=== PATIENT | male | born 1940 | race Caucasian/White ===

== ENCOUNTER 2016-12-31 23:59 | Emergency (ER) | payer MEDICARE, BC ==
--- NOTE | ~2016-12-31 | CT2 ---
[facility] A Service of [facility] & [facility] RADIOLOGY TEXT RESULTS PATIENT: CHIQUITA ARAUJO LOCATION: [facility] : 36 UNIT #: [id number] AGE: [address]: Jann Simon MD SEX: M ORDER DR: [id number] [facility] [address] [place], [place] [address] [id number] E MR#: [id number] Acc #: [id number] NAME: CHIQUITA ARAUJO : 1940 SEX: M STUDY DATE/TIME: 01/01/2017 4:03 UNIT: [facility] ROOM: STUDY DESCRIPTION: CT Abd and Pelv W Cont Attending Physician: Jann Simon M.D. Ordering Physician: Jann Simon M.D. Primary Care Physician: Jose Freire M.D. MEDICAL IMAGING REPORT This report is preliminary unless electronic signature is present EXAM CT abdomen and pelvis with contrast INDICATION Abdominal pain and no bowel movement for 4 days. COMPARISON 12/19/2015. TECHNIQUE Patient was given 100 mL of Isovue 370 and axial 5 mm images were obtained through the abdomen and pelvis. This CT examination was performed with one or more of the following radiation dose reduction techniques: automatic exposure control, adjustment of mA and/or kV according to patient size, and iterative reconstruction. FINDINGS Lung bases are clear. The liver contains multiple low-density lesions. Most appear to be cysts. The 1 in the left lobe of the liver is a hemangioma. They were all present 01/04/2015. The hemangioma is about 3 cm in diameter. The gallbladder has been removed. The spleen is normal. The pancreas is normal. The adrenal glands are normal. The kidneys contain multiple cysts. The abdominal aorta shows very mild infrarenal enlargement measuring 2.5 cm in diameter. There is a cystic area in the left side of the abdomen below the level of the kidneys. It is well-circumscribed and unilocular. It is 4.3 x 2.7 x 4.6 cm. It measures -16 Hounsfield units. It was present 01/04/2015 and it is about the same size. It was also present in 2011 although it is much larger than on that exam. There continues to be an abdominal wall hernia containing small bowel without evidence of obstruction. The appearance is unchanged from the prior study. The bowel is normal. The bladder appears to have a left-sided mass measuring about 1 cm in diameter which is new from 2015. There are metal seeds in the prostate gland. The bones are unremarkable. [facility]. [facility] A Service of [facility] RADIOLOGY TEXT RESULTS PATIENT: CHIQUITA ARAUJO LOCATION: [facility] : 36 UNIT #: [id number] AGE: [address]: Jann Simon MD SEX: M ORDER DR: IMPRESSION 1. There appears to be a left bladder wall mass. This is along the inferior margin of the bladder and is new from 2015. It is about 11-13 mm in diameter. 2. There is an enlarging fluid density well-circumscribed lesion in the mesentery. It is larger than in 2011 but about the same size as 2015 and has a very benign appearance. 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 3. 2.5 cm infrarenal abdominal aortic aneurysm. 4. Hepatic cysts and left lobe hepatic hemangioma. 5. Midline abdominal wall weak area and probable hernia containing small bowel. It is unchanged from prior exam. There is no evidence of obstruction. Dictated by... Jassi Del Cid M.D. THIS IS AN ELECTRONICALLY VERIFIED REPORT Jassi Del Cid M.D. at 01/01/2017 1:15 PM NATHAN/benny TD: 01/01/2017 06:28 JOB #: [id number] MEDICAL IMAGING REPORT Page 1 of 1 COPY
[~2016-12-31 23:59] MED LIST: ACETAMINOPHEN PO; ACTOS PO; ACTOS30 MG PO; AMIODARONE PO; ATORVASTATIN CA10 MG PO; B-121000 MC1 PO; CARDIZEM30 MG PO; CARTIA XT PO; CERTAGEN PO; CO Q-10150 MG PO; CO Q10100 MG PO; COLACE PO; CORDARONE200 M1 PO; COUMADIN PO; COUMADIN5 MG PO; DILTIAZEM 24HR120 M1 PO; DILTIAZEM 24HR120 MG PO; FLAGYL PO; FLOMAX0.4 M1 PO; FLOMAX0.4 MG PO; GABAPENTIN300 MG PO; GABAPENTIN600 MG PO; GLUCOPHAGE500 M1 PO; GLUCOPHAGE500 MG PO; GLUCOTROL PO; GLYBURIDE MICRON3 MG PO; GLYBURIDE PO; GLYNASE PO; IRON325 ( 65 ) PO; JUICE PLUS PO; JUICE PLUS VITAMINS PO; KEFLEX PO; KEPPRA500 M1 PO; LANTUS SOLOSTAR3 ML SUBQ; LATANOPROST2.5 ML OP; LEVAQUIN750 MG PO; LIPITOR; LIPITOR PO; LOPRESSOR PO; LORTAB 7.51 TAB 7.5/ PO; METFORMIN HCL500 M1 PO; METFORMIN HCL500 M2 PO; METFORMIN PO; MORPHINE SULFAT15 MG PO; MORPHINE SULFAT30 M4 PO; NATURAL VITA400 UNI2 PO; NEURONTIN300 MG PO; NEURONTIN600 MG PO; PACERONE PO; PIOGLITAZONE15 MG PO; RED YEAST RICE600 M1 PO; STOOL SOFTENER100 M1 PO; THERAGRAN-M ADV1 TA1 PO; TOPROL XL 50 MG50 MG PO; VANTIN100 MG PO; VICOPROFEN 200-1 TAB PO; VIT B-12 PO; VIT E PO; VITAMIN E200 UNI1 PO; VITAMIN E400 UNI1 PO; VITAMIN E400 UNI4 PO; WARFARIN SODIU7.5 MG PO; WARFARIN SODIUM10 MG PO; WARFARIN SODIUM2 M1 PO; XALATAN OS; [UNRECOGNIZED DRUG - OTHER] PO
[2017-01-01 00:22] LABS: BASOPHIL% 0.8 % (0-2.5); DIFF IND NO; EOSINOPHIL# 0.1 X10e3 (0-0.7); EOSINOPHIL% 2.6 % (0.0-7.0); HEMATOCRIT 32.3 % (38.0-50.0); HEMOGLOBIN 10.5 gm/dL (13.0-16.0); LYMPHOCYTE# 0.5 X10e3 (1.0-3.5); LYMPHOCYTE% 10.3 % (17.0-45.0); MEAN CORPUSCULAR HEMOGLOBIN 29.2 PG (28-34); MEAN CORPUSCULAR HGB CONC 32.5 g/dL (30-36); MEAN PLATELET VOLUME 7.9 FL (6.5-11.5); MONOCYTE# 0.5 X10e3 (0-1.0); NEUTROPHIL# 3.9 X10e3 (1.5-7.1); NEUTROPHIL% 77.3 % (40-75); PLATELET COUNT 213 X10e3 (140-420); RED BLOOD COUNT 3.59 X10e (3.90-5.60); RED CELL DISTRIBUTION WIDTH 17.7 % (11.0-15.5); WHITE BLOOD COUNT 5.1 X10e3 (4.0-10.5)
[2017-01-01 00:35] LABS: INR 1.6; PROTHROMBIN TIME (PATIENT) 17.5 SECONDS (9.6-11.5)
[2017-01-01 00:45] LABS: ALBUMIN SERUM 2.6 g/dL (3.5-5.0); BILIRUBIN, DIRECT 0.2 mg/dL (0.0-0.2); BILIRUBIN,INDIRECT 0.5 mg/dL (0.0-0.9); BILIRUBIN,TOTAL 0.7 mg/dL (0.2-2.0); BUN/CREATININE RATIO 13.07; CALCIUM SERUM 8.7 mg/dL (8.4-10.2); CREATININE SERUM 1.3 mg/dL (0.6-1.4); GLOM FILT RATE Estimated 52.3 mL/min (>60); POTASSIUM 4.9 mmol/L (3.5-5.1); PROTEIN TOTAL SERUM 5.6 g/dL (6.0-8.3)
[2017-01-01 03:35] LABS: URINE SOURCE CLEAN CATCH
[2017-01-01 03:39] LABS: URINE APPEARANCE CLEAR; URINE BILIRUBIN NEG (NEG); URINE BLOOD NEG (NEG); URINE COLOR YELLOW; URINE GLUCOSE NEG (NEG); URINE KETONE NEG (NEG); URINE LEUKOCYTE ESTERASE NEG (NEG); URINE NITRATE NEG (NEG); URINE PROTEIN NEG (NEG); URINE SPECIFIC GRAVITY 1.017 (1.003-1.035)
[2017-01-01 03:40] LABS: CULTURE INDICATED? NO
== END 2017-01-01 05:26 | disposition home or self-care (01) ==
LOC: CED 23:59
PROVIDERS: Emergency Medicine
DX: K59.00 Constipation, unspecified (principal); R11.0 Nausea; I48.91 Unspecified atrial fibrillation; E11.9 Type 2 diabetes mellitus without complications; Z79.01 Long term (current) use of anticoagulants; Z79.899 Other long term (current) drug therapy; Z88.8 Allergy status to other drugs, medicaments and biological substances
CPT/HCPCS: 36415; 74177; 80048; 80076; 81003; 83690; 85025; 85610; 99284; Q9967